=== PATIENT | female | born 1975 | race Caucasian/White ===

== ENCOUNTER 2025-02-04 15:12 | Emergency (ER) | payer MEDICARE, MEDICAID, SELFPAY ==
[2025-02-04 15:19] VITALS: BP 149/103; PULSE 64; TEMP 36.6; O2SAT 98; BMI 31.8
--- NOTE | 2025-02-04 15:25 | CT_ITS ---
The [address] [address] Patient Name: TALON SANCHEZ MRN: [id number] date: 1975 Sex: F Assigned Patient Location: ED.MAIN Current Patient Location: ED.MAIN Accession/Order Number: [id number] Exam Date: 02/04/2025 16:10 Report Date: 02/04/2025 16:47 At the request of: WALDEMAR ARREOLA DO Procedure: CT facial bones w con MAXILLOFACIAL CT WITH IV CONTRAST: CLINICAL HISTORY: left periorbital edema/tooth pain; soft tissue ifx COMPARISON: None TECHNIQUE: Spiral axial unenhanced images were obtained through the facial bones. Coronal and sagittal reconstructions were also reviewed. This CT exam was performed using one or more following dose reduction techniques: Automated exposure control, adjustment of the mA and/or kV according to patient size, or use of iterative reconstruction technique. FINDINGS: Mild left periorbital/cheek soft tissue swelling. No fluid collection to suggest abscess. No facial bone, nasal bone or orbital fracture. Moderate left maxillary sinus disease. No bony destruction is noted. Intraorbital contents appear grossly unremarkable. Nasopharynx appears grossly unremarkable. Mandible appears intact.. CT/CT facial bones w con IMPRESSION: MILD LEFT PERIORBITAL/CHEEK SOFT TISSUE SWELLING WITHOUT BONY ABNORMALITY OR FLUID COLLECTION TO SUGGEST ABSCESS. Impression dictated by: Honorio Thornton Jr., D.O. 02/04/2025 4:47 PM Dictation Location: [place] [address] Electronically authenticated by: [id number] Y Date: 02/04/2025 16:47
--- NOTE | 2025-02-04 15:32 | ED_ITS ---
HPI HPI - General Adult General Chief complaint: Dental/Oral Stated complaint: EYE Time Seen by Provider: 02/04/25 15:19 Source: patient Mode of arrival: walk-in Limitations: no limitations History of Present Illness HPI narrative: Patient is a 49-year-old female presenting to the emergency department for concerns of left-sided facial pain. She states that 4 days ago she started having pain in the left upper part of her mouth/gums. She states that the left part of her face, just under her eye has been swollen as well. Over the last 4 days, her symptoms have gotten worse and the swelling is progressing. Patient states she was seen in the emergency department at [facility] yesterday, and prescribed amoxicillin. She states that despite taking amoxicillin as prescribed, her symptoms/facial swelling is getting worse. She denies any changes in her vision, or pain with extraocular eye movements. She denies any throat pain, trouble breathing, shortness of breath, fevers, or chills. She has history of diabetes. No history of ENT procedures. Related Data Previous Rx's ?Medication ?Instructions ?Recorded amoxicillin 875 mg-potassium 1 tab PO Q12H 10 days #20 tabs 02/04/25 clavulanate 125 mg tablet Allergies Allergy/AdvReac Type Severity Reaction Status Date / Time No Known Drug Allergies Allergy Verified 02/04/25 15:19 Opioid HPI Opioid Management Most Recent Opioid Data: Last Pain Scale 9 Today, 15:39 Last MAR Pain Assessment Today, 15:39 Review of Systems ROS Status of ROS 10 or more systems reviewed and unremark able except as noted in history and below PFSH PFSH Social History Little interest or pleasure in doing things: not at all Feeling down, depressed, or hopeless: not at all Exam Narrative Exam Narrative: CONSTITUTIONAL: Well-appearing, answering questions and following commands a ppropriately SKIN: There is mild periorbital edema inferiorly and involving the left cheek. There is mild overlying erythema and tenderness to palpation. There is no fluctuance, crepitus, or drainage. EYES: PERRLA. EOMI. Sclera white. EARS, NOSE, THROAT: There is mild tenderness to palpation of the left upper gumline, just inferior to the area of facial swelling. No trismus. Uvula midline. No peritonsillar abscess. No neck swelling. Speaking with a normal voice. RESPIRATORY: Clear to auscultation bilaterally, no wheezes, crackles, or stridor, no use of accessory muscles CARDIOVASCULAR: Normal rate and regular rhythm. There is no S3, S4, murmur, rub. GASTROINTESTINAL: Abdomen is nondistended. MUSCULOSKELETAL: No peripheral edema. NEUROLOGIC: Patient is awake and alert. Constitutional Vital Signs, click to edit/add: Last Vital Signs Temp 97.9 F 02/04/25 15:19 Pulse 57 L 02/04/25 17:02 Resp 18 02/04/25 17:02 BP 141/103 H 02/04/25 17:02 Pulse Ox 99 02/04/25 17:02 O2 Del Method Room Air 02/04/25 17:02 Course Vital Signs Vital signs: Vital Signs Temperature 97.9 F 02/04/25 15:19 Pulse Rate 64 02/04/25 15:19 Respiratory Rate 14 02/04/25 15:19 Blood Pressure 149/103 H 02/04/25 15:19 Pulse Oximetry 98 02/04/25 15:19 Oxygen Delivery Method Room Air 02/04/25 15:19 Temperature 97.9 F 02/04/25 15:19 Pulse Rate 57 L 02/04/25 17:02 Respiratory Rate 18 02/04/25 17:02 Blood Pressure 141/103 H 02/04/25 17:02 Pulse Oximetry 99 02/04/25 17:02 Oxygen Delivery Method Room Air 02/04/25 17:02 Medical Decision Making [facility] Narrative Medical decision making narrative: Patient is a 49-year-old female presenting to the emergency department for evaluation of left-sided facial pain and swelling over the last 4 days. She has been on amoxicillin since discharge from an outside ED yesterday, however she feels as if her symptoms are progressing/getting worse. Her vital signs on arrival today are within normal limits. She is afebrile and hemodynamically stable. Her examinations as noted above. Differential diagnosis includes odontogenic infection, periorbital cellulitis, facial cellulitis/abscess, or other infectious processes. There is no ocular involvement, have low concern for postseptal cellulitis. CT maxillofacial with IV contrast was ordered to further investigate. IV was established and laboratory studies were obtained. She was given IV ketorolac for pain. CT maxillofacial independently reviewed and interpreted by myself and radiology demonstrated evidence of left-sided periorbital cellulitis without evidence of abscess formation. Laboratory studies were unremarkable. No significant electrolyte or metabolic derangement. No evidence of acute kidney injury. No anemia, leukocytosis, or thrombocytopenia. On reevaluation, patient states she feels improved. I do believe the patient is stable for discharge at this time. Patient's presentation is most likely consistent with mild periorbital, preseptal cellulitis. They were instructed to follow up with her PCP for further care in the next 5 to 7 days. Return precautions were given including any new or worsening symptoms. They were given a prescription for Augmentin 875 mg twice daily x 10 days. Patient understands and agrees to the plan. FINAL IMPRESSION: #Acute left-sided periorbital cellulitis DISPOSITION: Discharged home CONDITION: Fair Medical Records Medical records reviewed: Yes I reviewed the patient's medical records Lab Data Lab results reviewed: Yes I reviewed the patient's lab results Labs: Lab Results 02/04/25 Range/Units 15:40 WBC 10.7 (4.0-11.0) 10^3/uL RBC 4.97 (4.20-5.40) 10^6/uL Hgb 15.7 (12.0-16.0) g/dL Hct 45.2 (36.0-48.0) % MCV 90.9 (81.0-99.0) fL MCH 31.6 (26.7-34.0) pg MCHC 34.7 (29.9-35.2) g/dL RDW 12.9 (11.0-15.0) % Plt Count 250 (150-450) 10^3/uL MPV 12.0 (9.5-13.5) fL Neut % (Auto) 57.5 (43.0-75.0) % Lymph % (Auto) 27.9 (20.5-60.0) % [place] % (Auto) 6.7 (1.7-12.0) % Eos % (Auto) 6.8 (0.9-7.0) % Baso % (Auto) 0.7 (0.2-2.0) % Neut # (Auto) 6.1 (1.4-6.5) 10^3/uL Lymph # (Auto) 3.0 (1.2-3.8) 10^3/uL [place] # (Auto) 0.7 (0.3-0.8) 10^3/uL Eos # (Auto) 0.7 (0.0-0.7) 10^3/uL Baso # (Auto) 0.1 (0.0-0.1) 10^3/uL Abs Immat Gran (auto) 0.04 H (0.00-0.03) 10^3/uL Imm/Tot Granulo (auto) 0.4 (0.0-0.5) % Sodium 140 (136-145) mmol/L Potassium 3.3 L (3.5-5.1) mmol/L Chloride 104 (98-107) mmol/L Carbon Dioxide 26.3 (21.0-32.0) mmol/L Anion Gap 13.0 BUN 6.0 L (7.0-18.0) mg/dL Creatinine 0.85 (0.55-1.02) mg/dL Est GFR ( Amer) >60 (>=60 mL/min/1.73m^2) Est GFR (Non-Af Amer) >60 (>=60 mL/min/1.73m^2) BUN/Creatinine Ratio 7.1 Glucose 108 H (74-106) mg/dL Calcium 8.7 (8.5-10.1) mg/dL Imaging Data ct facial bones: Attestation: I personally reviewed and interpreted this imaging study as follows: Radiologist's impression: ITS Impressions Facial Bones CT 02/04/25 15:25 IMPRESSION: MILD LEFT PERIORBITAL/CHEEK SOFT TISSUE SWELLING WITHOUT BONY ABNORMALITY OR FLUID COLLECTION TO SUGGEST ABSCESS. Impression dictated by: Honorio Thornton Jr., D.O. 02/04/2025 4:47 PM Dictation Location: [place] [address] Electronically authenticated by: [id number] Y Date: 02/04/2025 16:47 Discharge Plan Discharge Chief Complaint: Dental/Oral Clinical Impression: Periorbital cellulitis of left eye Patient Disposition: Home, Self-Care Time of Disposition Decision: 16:53 Condition: Good Mode of Transportation: Private Vehicle Prescriptions / Home Meds: New amoxicillin-pot clavulanate 875-125 mg tablet 1 tab PO Q12H 10 Days Qty: 20 0RF Print Language: Brazilian Referrals: Physician,Non-Staff, MD [Primary Care Provider] - 1 week Discharge Date/Time: 02/04/25 17:02
[2025-02-04] MEDS: KETOROLAC TROMETHAMINE 30 MG/ML VIAL IVP (15:39)
[2025-02-04 15:50] LABS: Hematocrit 45.2 % (36.0-48.0); Hemoglobin 15.7 g/dL (12.0-16.0); Immature Granulocytes Abs Auto 0.04 10^3/uL (0.00-0.03); Immature Granulocytes Pct Auto 0.4 % (0.0-0.5); Lymphocytes Absolute Auto 3.0 10^3/uL (1.2-3.8); Mean Corpuscular HGB Conc 34.7 g/dL (29.9-35.2); Mean Corpuscular Hemoglobin 31.6 pg (26.7-34.0); Mean Corpuscular Volume 90.9 fL (81.0-99.0); Platelet Count 250 10^3/uL (150-450); Red Blood Count 4.97 10^6/uL (4.20-5.40); White Blood Count 10.7 10^3/uL (4.0-11.0)
[2025-02-04 15:58] LABS: Anion Gap 13.0; Blood Urea Nitrogen 6.0 mg/dL (7.0-18.0); Calcium 8.7 mg/dL (8.5-10.1); Carbon Dioxide 26.3 mmol/L (21.0-32.0); Chloride 104 mmol/L (98-107); Estimated GFR (African America >60 (>=60 mL/min/1.73m^2); Estimated GFR (Non-African Ame >60 (>=60 mL/min/1.73m^2); Glucose 108 mg/dL (74-106); Potassium 3.3 mmol/L (3.5-5.1); Sodium 140 mmol/L (136-145)
[2025-02-04 17:02] VITALS: BP 141/103; PULSE 57; O2SAT 99
== END 2025-02-04 17:02 | disposition home or self-care (01) ==
PROVIDERS: Emergency Provider Student in an Organized Health Care Education/Training Program; PCP Family Medicine
DX: L03.213 Periorbital cellulitis (principal); E11.9 Type 2 diabetes mellitus without complications
CPT/HCPCS: 36415; 70487; 80048; 85025; 96374; 99285; J1885; Q9967

== ENCOUNTER 2025-04-24 11:08 | Emergency (ER) | payer MEDICARE, MEDICAID, SELFPAY ==
--- OUTSIDE RECORDS SUMMARY | 2025-04-23 10:53 | XMS_ITS | Encounter Summary ---
Author Organization [facility] [facility] tem Address [id number] [address] [place] [address] Care Team Providers Care Fast Food Manager Name Role Phone Ori Flores MD Primary Care Provider + Reason for Visit * ReasonCommentsDental Pain Encounter Details DateTypeDepartmentCare Team (Latest Contact Info)Xrceukockbx65/24/2025 10:53 AM EST - 04/23/2025 11:15 AM ESTEmergency [facility] [address] [place] [address] Kasi Adame MD [address] [place] [address] Chronic dental pain (Primary Dx) Discharge Disposition: Home Social History Tobacco UseTypesPacks/DayYears UsedDateSmoking Tobacco: FormerSmokeless Tobacco: NeverAlcohol UseStandard Drinks/WeekCommentsNever0 (1 standard drink = 0.6 oz pure alcohol)AUDIT-CAnswerDate RecordedFrequency of Alcohol ConsumptionNever 05/26/2019Average Number of DrinksNot on file05/26/2019Frequency of Binge DrinkingNot on file05/26/2019ChildcareAnswerDate RecordedChildcareUnknown 11/09/2018EmploymentAnswerDate SknwdammUhvtrezwewGinvday06/12/2019Hunger ScreeningAnswerDate RecordedWithin the past 12 months we worried whether our food would run out before we got money to buy more.Never True04/23/2025Within the past 12 months the food we bought just didn't last and we didn't have money to get more.Never True04/23/2025Purpose - LifeAnswerDate RecordedPurpose and direction in rtirArpkdgw10/11/2021CommentsNoSex and Gender Information ValueDate RecordedSex Assigned at BirthNot on fileLegal KzkKpsfca86/06/2015 11:26 AM EDTGender IdentityNot on fileSexual OrientationNot on filedocumented as of this encounter Last Filed Vital Signs Vital SignReadingTime TakenCommentsBlood Aqbzxvxo814/3664904/23/2025 10:39 AM EST Wavjc566004/23/2025 10:39 AM OPNTypsormlruw96.8 ??C (98.2 ??F)04/23/2025 10:39 AM ESTRespiratory Jgld949106/23/2024 10:39 AM ESTOxygen Dlqkpjxgrj74%04/23/2025 10:39 AM ESTInhaled Oxygen Concentration--Whjply19.8 kg (187 lb)04/23/2025 10:39 AM DKURvmwwl307.2 cm (5' 7 )04/23/2025 10:39 AM ESTBody Mass Index29.29106/23/2024 10:39 AM ESTdocumented in this encounter Discharge Instructions * Attachments The following attachments cannot be sent through Care Everywhere. * Dental Pain ED (Welsh) documented in this encounter Medications at Time of Discharge MedicationSigDispense QuantityRefillsLast FilledStart DateEnd Date albuterol (ACCUNEB) 1.25 mg/3 mL nebulizer solution Inhale 1 ampule by nebulization every 6 (six) hours as needed for wheezing. albuterol (PROVENTIL HFA;VENTOLIN HFA) 90 mcg/actuation inhaler Indications:Community acquired pneumonia of left lower lobe of lungInhale 2 puffs every 6 (six) hours as needed for wheezing. 18 g 03/20/2024 amLODIPine (NORVASC) 10 mg tablet Take 10 mg by mouth daily. CEPHalexin (KEFLEX) 500 mg capsule Take 1 capsule (500 mg total) by mouth 3 (three) times a day for 7 days. 21 capsule ibuprofen (MOTRIN) 800 mg tablet Take 1 tablet (800 mg total) by mouth every 6 (six) hours as needed for pain. 30 tablet 02/03/2025 ketorolac (TORADOL) 10 mg tablet Take 1 tablet (10 mg total) by mouth 3 (three) times a day as needed for pain for up to 5 days. 15 tablet lisinopril-hydroCHLOROthiazide (PRINZIDE,ZESTORETIC) 20-25 mg per tablet Take 1 tablet by mouth daily. nystatin (MYCOSTATIN) powder Apply 1 Application topically in the morning and 1 Application at noon and 1 Application in the evening and 1 Application before bedtime. 15 g 01/03/2025documented as of this encounter ED Notes * Kasi Adame MD - 04/23/2025 10:56 AM EST Images from the original note were not included. [facility] Pt Name: Rain Wolfe Birthdate: 1975 Chief Complaint: Chief Complaint Patient presents with Dental Pain History of Present Illness: Initial evaluation performed at 10:[address] Isa Adame. Patient is a 50 y.o. female who presents to the ED for evaluation of dental pain. Pt states she wasgiven an antibiotic that she has since finished and has been seeing a dentist, which fixed her broken tooth and extracted two of them. Pt states her left lower jaw is just in a lot of pain now and she just was relief. Pt also states she did take her blood pressure medication this morning, but it iselevated due to her being in pain. History provided by: Patient director of institutional research used: No Past Medical History: Past Medical History: Diagnosis Date Asthma Hypertension Sciatica Past Surgical History: Past Surgical History: Procedure Laterality Date APPENDECTOMY SECTION CHOLECYSTECTOMY Family History: History reviewed. No pertinent family history. Social History: Social History Socioeconomic History Marital status: Legally Tobacco Use Smoking status: Former Smokeless tobacco: Never Vaping Use Vaping status: Former Substance and Sexual Activity Alcohol use: Never Drug use: Never Sexual activity: Defer Social Drivers of Health Financial Resource Strain: Low Risk (06/09/2021) [facility] Overall Financial Resource Strain (CARDIA) Difficulty of Paying Living Expenses: Not hard at all Food Insecurity: No Food Insecurity (04/23/2025) Hunger Screening Food Insecurity - Worry: Never True Food Insecurity - Inability: Never True Transportation Needs: No Transportation Needs (03/15/2025) Received from [facility] PRAPARE - Transportation In the past 12 months, has lack of transportation kept you from medical appointments or from getting medications?: No In the past 12 months, has lack of transportation kept you from meetings, work, or from getting things needed for daily living?: No Housing Instability: Low Risk (03/15/2025) Received from [facility] Housing Stability Vital Sign In the last 12 months, was there a time when you were not able to pay the mortgage or rent on time?: No In the past 12 months, how many times have you moved where you were living?: 1 At any time in the past 12 months, were you homeless or living in a long-term (including now)?: No Review of Systems: Review of Systems Physical Exam: ED Triage Vitals [04/23/25 1039] Temp Heart Rate Resp BP SpO2 36.8 ??C (98.2 ??F) 77 18 (!) 155/108 97 % Temp Source Heart Rate Source Patient Position BP Location FiO2 (%) Oral Pulse Ox Sitting Left arm -- Vitals: 04/23/25 1039 BP: (!) 155/108 Temp: 36.8 ??C (98.2 ??F) TempSrc: Oral Pulse: 77 Resp: 18 SpO2: 97% Height: 170.2 cm (5' 7 ) Weight: 84.8 kg (187 lb) Physical Exam Vitals reviewed. HENT: Head: Normocephalic and atraumatic. Comments: No facial erythema. Mouth/Throat: Mouth: Mucous membranes are moist. Dentition: Dental caries present. No gingival swelling (or bleeding/drainage). Comments: Left lower 1st and 2nd molars are gone from prior extraction. Eyes: Conjunctiva/sclera: Conjunctivae normal. Cardiovascular: Rate and Rhythm: Normal rate. Pulmonary: Effort: Pulmonary effort is normal. Breath sounds: Normal breath sounds. Abdominal: General: There is no distension. Palpations: Abdomen is soft. Musculoskeletal: General: Normal range of motion. Cervical back: Normal range of motion and neck supple. Skin: General: Skin is warm and dry. Neurological: General: No focal deficit present. Mental Status: She is alert and oriented to person, place, and time. GCS: GCS eye subscore is 4. GCS verbal subscore is 5. GCS motor subscore is 6. Procedure: Procedures Re-evaluation: Re-Evaluation Medical Decision Making ED Course: Clinical Impressions as of 04/23/25 1102 Chronic dental pain . ED Disposition ED Disposition Discharge Date/Time WedApr 23, 2025 10:59 AM Comment At the time of discharge, the plan has been discussed with the patient regarding the diagnosis and prognosis. All questions have been answered. Verbal discharge instructions were discussed with the patient. The patient has been advised to follow up w ith their Specialist within 1 week. The patient was also instructed to return to the ED if their symptoms change, worsen, new symptoms arise or if they have any additional concerns. Medications Prescribed this Visit Sig CEPHalexin (KEFLEX) 500 mg capsule Take 1 capsule (500 mg total) by mouth 3 (three) times a day for7 days. ketorolac (TORADOL) 10 mg tablet Take 1 tablet (10 mg total) by mouth 3 (three) times a day as needed for pain for up to 5 days. . Please note that portions of this note were completed with a voice recognition program. Efforts were made to edit the dictations but occasionally words are mis-transcribed. Bernardino Hull 04/23/25 1102 Kasi Adame MD 04/24/25 0839 * Renetta Luna RN - 04/23/2025 10:40 AM EST RECURRENT DENTAL PAIN LOWER LEFT. PT STATES TOOTH WAS BROKEN HAS BEEN FIXED. documented in this encounter Plan of Treatment Not on file documented as of this encounter Visit Diagnoses Diagnosis Chronic dental pain- Primary documented in this encounter Administered Medications Medication OrderMAR ActionAction DateDoseRateSite CEPHalexin (KEFLEX) capsule 500 mg 500 mg, oral, Once, On Wed04/23/25 at 1059, For 1 dose, Look-alike/sound-alike medication - verifyindication for use., Indication: Skin and soft tissue infection Given04/23/2025 11:05 AM AKP280 mg ketorolac (TORADOL) tablet 10 mg 10 mg, oral, Once, On Wed04/23/25 at 1059, For 1 dose, Look-alike/sound-alike medication - verify indication for use. Duration of therapy is not to exceed 5 days. Maximum recommended dose = 40mg/24 hours. Given04/23/2025 11:05 AM EST10 mgdocumented in this encounter Active and Recently Administered Medications Times are shown in EST.Medication Order// CEPHalexin (KEFLEX) capsule 500 mg (COMPLETED) 500 mg, oral, Once, On Wed04/23/25 at 1059, For 1 dose, Look-alike/sound-alike medication - verifyindication for use., Indication: Skin and soft tissue infection * 1105 (Given - Provider: Doron Degroot RN) ketorolac (TORADOL) tablet 10 mg (COMPLETED) 10 mg, oral, Once, On Wed04/23/25 at 1059, For 1 dose, Look-alike/sound-alike medication - verify indication for use. Duration of therapy is not to exceed 5 days. Maximum recommended dose = 40mg/24 hours. * 1105 (Given - Provider: Doron Degroot RN) documented in this encounter Care Teams Team MemberRelationshipSpecialtyStart DateEnd Date Ori Flores MD [address] [place] [id number] PCP - GeneralFamily Medicine09/17/24documented as of this encounter
[2025-04-24 11:11] VITALS: BP 154/106; PULSE 94; TEMP 37.2; O2SAT 96; BMI 30.2
--- NOTE | 2025-04-24 11:20 | ED.GENADUL1 ---
HPI HPI - General Adult General Chief complaint: Dental/Oral Stated complaint: DENTAL PAIN SWELLING Time Seen by Provider: 04/24/25 11:09 Source: patient Mode of arrival: walk-in Limitations: no limitations History of Present Illness HPI narrative: 50-year-old female presented to the emergency department for toothache. She is complaining of pain to the left lower jaw and has some swelling. She went to the hospital in [place] yesterday and they put her on Keflex. She talk to her dentist and they told her to come here to get a shot. She has an appointment to have a root canal in a few weeks. The pain is moderate and continuous. Related Data Previous Rx's ?Medication ?Instructions ?Recorded amoxicillin 875 mg-potassium 1 tab PO Q12H 10 days #20 tabs 02/04/25 clavulanate 125 mg tablet amoxicillin 875 mg-potassium 1 tab PO BID #20 tabs 04/24/25 clavulanate 125 mg tablet Allergies Allergy/AdvReac Type Severity Reaction Status Date / Time No Known Drug Allergies Allergy Verified 04/24/25 11:15 Opioid HPI Opioid Management Most Recent Opioid Data: Last Pain Scale 10 Today, 11:11 Review of Systems ROS Narrative A ten point review of systems is negative except as noted above. PFSH PFSH Social History Little interest or pleasure in doing things: not at all Feeling down, depressed, or hopeless: not at all Exam Narrative Exam Narrative: Nurses note and vital signs reviewed General:The patient appears in no apparent distress. Skin:Warm, dry, no pallor noted.There is no rash noted. Head:Normocephalic, atraumatic Eye: Normal conjunctiva, no drainage, no periorbital swelling Ears, Nose, Mouth, and Throat: oral mucosa is moist. Nares patent. No swelling to the floor of her mouth. She has swelling of the left lower jaw without fluctuance. No bleeding or pus present in her mouth. Cardiovascular:Regular Rate and Rhythm Respiratory:Patient is in no distress, no accessory muscle use, lungs are clear to auscultation, no wheezing, rales or rhonchi Back:non-tender GI: Soft and nontender Musculoskeletal: The patient has no evidence of calf tenderness, no pitting edema, symmetrical pulses noted bilaterally Neurological: Awake and alert Psychiatric:Cooperative Constitutional Vital Signs, click to edit/add: Last Vital Signs Temp 98.9 F 04/24/25 11:11 Pulse 94 H 04/24/25 11:11 Resp 18 04/24/25 11:11 BP 154/106 H 04/24/25 11:11 Pulse Ox 96 04/24/25 11:11 Course Vital Signs Vital signs: Vital Signs Temperature 98.9 F 04/24/25 11:11 Pulse Rate 94 H 04/24/25 11:11 Respiratory Rate 18 04/24/25 11:11 Blood Pressure 154/106 H 04/24/25 11:11 Pulse Oximetry 96 04/24/25 11:11 Temperature 98.9 F 04/24/25 11:11 Pulse Rate 94 H 04/24/25 11:11 Respiratory Rate 18 04/24/25 11:11 Blood Pressure 154/106 H 04/24/25 11:11 Pulse Oximetry 96 04/24/25 11:11 Medical Decision Making MDM Narrative Medical decision making narrative: She was given IM Ancef and is requesting Augmentin because this helped her the last time. She was prescribed Augmentin and will follow-up with her dentist. Treatment diagnosis and follow-up were discussed thoroughly. Differential Diagnosis Differential Diagnosis: Dental caries, dental abscess, dental infection Medical Records Medical records reviewed: Yes I reviewed the patient's medical records Discharge Plan Discharge Chief Complaint: Dental/Oral Clinical Impression: Toothache Patient Disposition: Home, Self-Care Time of Disposition Decision: 11:20 Condition: Good Mode of Transportation: Private Vehicle Prescriptions / Home Meds: New amoxicillin-pot clavulanate 875-125 mg tablet 1 tab PO BID Qty: 20 0RF No Action amoxicillin-pot clavulanate 875-125 mg tablet 1 tab PO Q12H 10 Days Qty: 20 0RF Print Language: Bolivian Instructions: Toothache (ED) Additional Instructions: Follow-up with your dentist. Referrals: PATRICIA ADAMS [Primary Care Provider, Unknown] - 1 week
--- OUTSIDE RECORDS SUMMARY | 2025-04-24 11:28 | XMS_ITS | Encounter Summary ---
Author Organization [facility] Address [address], [address] [place] [address] Care Team Providers Care Animal Technician Name Role Phone Ori Flores MD Primary Care Provider + Reason for Visit * ReasonOnset DateCommentsMedication Qdfpoy3304/20/2025 Encounter Details DateTypeDepartmentCare Team (Latest Contact Info)Pclhlinrkwv22/21/2025Refill [facility] [address] [place] [address] Estelle Mcmahon, GROUP HOME SUPERVISOR - CHIEF TALENT OFFICER [address] [place] [address] Medication Refill Social History Tobacco UseTypesPacks/DayYears UsedDateSmoking Tobacco: FormerCigarettesQuit: 08/14/2012Smokeless Tobacco: NeverAlcohol UseStandard Drinks/WeekCommentsYes0 (1 standard drink = 0.6 oz pure alcohol)Overall Financial Resource Strain (CARDIA) AnswerDate RecordedHow hard is it for you to pay for the very basics like food, housing, medical care, and heating?Not hard at all06/09/2021HQ-2AnswerDate RecordedPHQ-9 Total Ewshq183Housing Stability Vital SignAnswerDate RecordedIn the last 12 months, was there a time when you were not able to pay the mortgage or rent on time?No03/15/2025In the past 12 months, how many times have you moved where you were living?110/16/2025At any time in the past 12 months, were you homeless or living in a correction (including now)?No03/15/2025 Hunger Vital SignAnswerDate RecordedWithin the past 12 months, you worried that your food would run out before you got the money to buymore.Never true03/15/2025 Within the past 12 months, the food you bought just didn't last and you didn't have money to get more.Never true03/15/2025PRAPARE - TransportationAnswerDate RecordedIn the past 12 months, has lack of transportation kept you from medical appointments or from getting medications?No03/15/2025In the past 12 months, has lack of transportation kept you from meetings, work, or from getting things needed for daily living?No03/15/2025HC UtilitiesAnswerDate RecordedIn the past 12 months has the electric, gas, oil, or water company threatened to shut off services in your home?No03/15/2025CommentsNoSex and Gender Information ValueDate RecordedSex Assigned at BirthNot on fileLegal XjbCvwmhl68/10/2013 11:35 AM ESTGender IdentityNot on fileSexual OrientationNot on filedocumented as of this encounter Plan of Treatment Not on file documented as of this encounter Visit Diagnoses Diagnosis Primary hypertension Unspecified essential hypertension documented in this encounter Additional Health Concerns AssessmentNoted TimeA fall risk assessment has been completed for the patient 06/09/2021 1:10 PM ESTdocumented as of this encounter Care Teams Team MemberRelationshipSpecialtyStart DateEnd Date Ori Flores MD [address] [place] [address] PCP - GeneralFamily Medicine12/28/18documented as of this encounter
--- OUTSIDE RECORDS SUMMARY | 2025-04-24 11:28 | XMS_ITS | Encounter Summary ---
Author Organization [employer] Address [facility]-[id number] [address] [place] [address] Care Team Providers Care Military Science Teacher Name Role Phone Ori Flores MD Primary Care Provider + Encounter Details DateTypeDepartmentCare Team (Latest Contact Info)Zrbutfsjumf73/24/2025Travel Social History Tobacco UseTypesPacks/DayYears UsedDateSmoking Tobacco: FormerSmokeless Tobacco: NeverAlcohol UseStandard Drinks/WeekCommentsNever0 (1 standard drink = 0.6 oz pure alcohol)AUDIT-CAnswerDate RecordedFrequency of Alcohol ConsumptionNever 05/26/2019Average Number of DrinksNot on file05/26/2019Frequency of Binge DrinkingNot on file05/26/2019ChildcareAnswerDate RecordedChildcareUnknown 11/09/2018EmploymentAnswerDate DmvuanaqEhhrlrhbooHguhhju83/12/2019Hunger ScreeningAnswerDate RecordedWithin the past 12 months we worried whether our food would run out before we got money to buy more.Never True04/23/2025Within the past 12 months the food we bought just didn't last and we didn't have money to get more.Never True04/23/2025Purpose - LifeAnswerDate RecordedPurpose and direction in pskjLooqfcl75/11/2021CommentsNoSex and Gender Information ValueDate RecordedSex Assigned at BirthNot on fileLegal ChwZapijs85/06/2015 11:26 AM EDTGender IdentityNot on fileSexual OrientationNot on filedocumented as of this encounter Plan of Treatment Not on file documented as of this encounter Visit Diagnoses Not on filedocumented in this encounter Care Teams Team MemberRelationshipSpecialtyStart DateEnd Date Oir Flores MD [address] [place] [address] PCP - GeneralFamily Medicine09/17/24documented as of this encounter
--- OUTSIDE RECORDS SUMMARY | 2025-04-24 11:28 | XMS_ITS | Clinical Summary ---
Author Organization [facility] Address [address], [address] [place] [address] Care Team Providers Care Bread Distributor Name Role Phone Ori Flores MD Primary Care Provider + Allergies No known active allergies Medications MedicationSigDispense QuantityRefillsLast FilledStart DateEnd DateStatus DULoxetine (CYMBALTA) 60 MG extended release capsule Take 1 capsule by mouth daily 30 capsule Active Additional Information Patient not taking.Reported on 04/05/2024 budesonide-formoterol (SYMBICORT) 160-4.5 MCG/ACT AERO Inhale 2 puffs into the lungs 2 times daily 1 each 03/02/2022ctive Additional Information Patient not taking.Reported on 04/05/2024 QUEtiapine (SEROQUEL) 25 MG tablet Take 1 tablet by mouth nightly as needed for Other (sleep) 60 tablet 4Active Additional Information Patient not taking.Reported on 02/15/2025 valACYclovir (VALTREX) 1 g tablet take 1 tablet by mouth twice a day 7 tablet 5Active amoxicillin-clavulanate (AUGMENTIN) 875-125 MG per tablet Take 1 tablet by mouth 2 times dailyActive amLODIPine (NORVASC) 5 MG tablet Indications:Essential hypertensiontake 1 tablet by mouth once daily 90 tablet 5Active albuterol sulfate HFA (PROVENTIL;VENTOLIN;PROAIR) 108 (90 Base) MCG/ACT inhaler Indications:COPD with acute exacerbation (HCC)INHALE 2 PUFFS BY MOUTH AND INTO THE LUNGS EVERY 6 HOURS NEEDED FOR WHEEZING 18 g 5Active ipratropium 0.5 mg-albuterol 2.5 mg (DUONEB) 0.5-2.5 (3) MG/3ML SOLN nebulizer solution Indications:COPD with acute exacerbation (HCC)inhale contents of 1 vial ( 3 milliliters ) in nebulizer by mouth and INTO THE LUNGS every 6 hours if needed for shortness of breath 360 mL 5Active Spacer/Aero-Holding Chambers (VORTEX VALVED HOLDING CHAMBER) IRIS Indications:COPD with acute exacerbation (HCC)1 each by Does not apply route daily 1 each 6Active methylPREDNISolone (MEDROL DOSEPACK) 4 MG tablet Indications:COPD with acute exacerbation (HCC)Take by mouth per directions 1 kit 5Active losartan (COZAAR) 25 MG tablet Indications:Primary hypertensionTake 1 tablet by mouth daily 30 tablet 5Active losartan (COZAAR) 25 MG tablet Indications:Primary hypertensionTake 1 tablet by mouth daily 30 tablet Discontinued(REORDER) guaiFENesin (MUCINEX) 600 MG extended release tablet Indications:COPD with acute exacerbation (HCC)Take 2 tablets by mouth 2 times daily for 10 days 40 tablet /Expired azithromycin (ZITHROMAX) 250 MG tablet Indications:COPD with acute exacerbation (HCC)500mg on day 1 followed by 250mg on days 2 - 5 6 tablet /Expired Active Problems ProblemNoted DateDiagnosed DateTrichomoniasis of pvqbhs785Constipation 5Bilateral gpimrxoqbutp17/10/2022hronic obstructive pulmonary disease, unspecified COPD type06/09/2021andidiasis of bwokgj9002/10/2021Finding of above normal blood yediieky54/13/2021ecurrent genital herpes dgxhdsw1602/10/2021prain of foot02/10/20216321Sgjbhwrnlmx47/12/5203Fwhqmts84/18/2017Chronic low back pain 03/21/20163608Jwxnyrj65/22/0529Ficfopw09/05/6910Wbandpu49/03/2015Moderate persistent asthma without sofuzddhuhpr66/23/2015Herpes sxbtqlw2412/07/2014 Resolved Problems ProblemNoted DateDiagnosed DateResolved TizdDzuns08Sore throat Encounters DateTypeDepartmentCare GmvmBmxztetsykg87/21/2025Refill [address] [place] [address] Estelle Mcmahon, LIBRARY TECHNICIAN - MARKETING SALES CONSULTANT Medication Unvuie9704/03/2025Results Follow-Up [address] [place] [address] Estelle Mcmahon, LIBRARY TECHNICIAN - MARKETING SALES CONSULTANT 04/02/2025Orders Only [address] [place] [address] Ori Flores MD Screening for colorectal tfttin8703/19/2025Orders Only [address] [place] [address] Estelle Mcmahon, LIBRARY TECHNICIAN - MARKETING SALES CONSULTANT COPD with acute exacerbation (HCC)03/15/2025 1:00 PM EDTOffice Visit [address] [place] [address] Estelle Mcmahon, LIBRARY TECHNICIAN - MARKETING SALES CONSULTANT COPD with acute exacerbation (HCC) (Primary Dx); Essential hypertension; Anxiety; Chronic left-sided low back pain, unspecified whether sciatica punsayv7103/08/2025 Refill [facility] [address] [facility] [place] [address] Estelle Mcmahon, LIBRARY TECHNICIAN - MARKETING SALES CONSULTANT Medication Mizcoj4902/15/2025 10:00 AM EDTOffice Visit [address] [place] [address] Estelle Mcmahon, LIBRARY TECHNICIAN - MARKETING SALES CONSULTANT Primary hypertension (Primary Dx); Chronic obstructive pulmonary disease, unspecified COPD type (HCC); Moderate persistent asthma without complication; Anxiety; Essential hypertension; Trichomoniasis of vagina; Recurrent genital herpes simplex; Constipation, unspecified constipation type01/22/2025[facility] [address] [facility] [place] [address] Ori Flores MD Medication Refillfrom Last 3 Months Immunizations ImmunizationAdministration DatesNext DueHep B, ENGERIX-B, RECOMBIVAX-HB, (age - 19y), IM, 0.5mL03/19/2015Pneumococcal, PPSV23, PNEUMOVAX 23, (age 2y+), SC/IM, 0.5mL10/01/2016TDaP, ADACEL (age 10y-64y), BOOSTRIX (age 10y+), IM, 0.5mL 01/15/2017 Family History Medical HistoryRelationNameCommentsHigh Blood PressureMotherRelationNameStatus CommentsFatherAliveMotherAlive Social History Tobacco UseTypesPacks/DayYears UsedDateSmoking Tobacco: FormerCigarettesQuit: 08/14/2012Smokeless Tobacco: Never Tobacco Cessation:Counseling Given: Not Answered Alcohol UseStandard Drinks/WeekCommentsYes0 (1 standard drink = 0.6 oz pure alcohol)Overall Financial Resource Strain (CARDIA)AnswerDate RecordedHow hard is it for you to pay for the very basics like food, housing, medical care, and heating?Not hard at all06/09/2021HQ-2AnswerDate RecordedPHQ-9 Total Score0 03/15/2025Housing Stability Vital SignAnswerDate RecordedIn the last 12 months, was there a time when you were not able to pay the mortgage or rent on time?No 03/15/2025In the past 12 months, how many times have you moved where you were living?t any time in the past 12 months, were you homeless or living in a jail (including now)?No03/15/2025Hunger Vital SignAnswerDate Recorded Within the past 12 months, you worried that your food would run out before you got the money to buymore.Never true03/15/2025Within the past 12 months, the food you bought just didn't last and you didn't have money to get more.Never true 03/15/2025PRAPARE - TransportationAnswerDate RecordedIn the past 12 months, has lack of transportation kept you from medical appointments or from getting medications?No03/15/2025In the past 12 months, has lack of transportation kept you from meetings, work, or from getting things needed for daily living?No 03/15/2025HC UtilitiesAnswerDate RecordedIn the past 12 months has the [place], gas, oil, or water company threatened to shut off services in your home?No03/15/2025CommentsNoSex and Gender InformationValueDate Recorded Sex Assigned at BirthNot on fileLegal KtgZnmegn78/10/2013 11:35 AM ESTGender IdentityNot on fileSexual OrientationNot on file Last Filed Vital Signs Vital SignReadingTime TakenCommentsBlood Pbstxymo287/9603/15/2025 1:13 PM EDT Gnbzk416703/15/2025 1:13 PM OVDFkqpkgaokpt74.6 ??C (97.8 ??F)03/15/2025 1:13 PM EDTRespiratory Jevz0015 1:13 PM EDTOxygen Lgestwdhur89%03/15/2025 1:13 PM EDTInhaled Oxygen Concentration--Jsvwep61.9 kg (207 lb)03/15/2025 1:13 PM EDT Dxrraz547.6 cm (5' 6 )03/15/2025 1:13 PM EDTBody Mass Index33.411 1:13 PM EDT Plan of Treatment Health MaintenanceDue DateLast DoneCommentsHepatitis B vaccine (1 of 3 - 19+ 3- dose series)Pap smear1997Cervical cancer screen 2006HPV (without or with Pap)2006Breast cancer sizfen0103/01/2016 Pneumococcal 0-49 years Vaccine (2 of 2 - PCV)Colonoscopy 2021olorectal Cancer Ywcnaw1403/01/2021FIT/FOBT: Average risk2021 Fecal-DNA (Cologuard): Average risk2021igmoidoscopy/CT colonography 2021nnual Wellness Visit (Medicare Advantage)05/31/2024Flu vaccine (#1) 12/29/2024OVID-19 Vaccine (1 - season)2025Depression Screen , 03/15/2025DTaP/Tdap/Td vaccine (2 - Td or Tdap)01/15/2027 01/15/20170948Xeyscb79, 08/25/2018, 08/02/2017Diabetes screen Shhpncvfjyrp32/28/2019Depression JpxjasweznMmanmffhsvdt02/16/2025, 03/15/2025HIV screenDiscontinuedHepatitis A vaccineAged OutNo longer eligible based on patient's age to complete this topicHepatitis C screenDiscontinuedHib vaccine Aged OutNo longer eligible based on patient's age to complete this topic Meningococcal (ACWY) vaccineAged OutNo longer eligible based on patient's age to complete this topicMeningococcal B vaccineAged OutNo longer eligible based on patient's age to complete this topicPolio vaccineAged OutNo longer eligible based on patient's age to complete this topic Procedures Procedure NamePriorityDate/TimeAssociated DiagnosisCommentsXR CHEST (2 VW) Qvquida4203/15/2025 COPD with acute exacerbation (HCC) LIPID URDRNNarqyzt10/06/2024 Primary hypertension COMPREHENSIVE METABOLIC PANEL, OHIYIRGCzjtyqf97/28/2019 1:50 PM EDT from Last 3 Months or Most Recently Relevant to Health Maintenance Results * XR CHEST STANDARD (2 VW) (03/15/2025)Anatomical RegionLateralityModalityChest Radiographic ImagingSpecimen (Source)Anatomical Location / Laterality Collection Method / VolumeCollection TimeReceived TimeChest Narrative Authorizing ProviderResult TypeResult StatusEstelle Mcmahon LIBRARY TECHNICIAN - MARKETING SALES CONSULTANT IMG DIAGNOSTIC IMAGING ORDERABLESFinal Result * Lipid Panel (04/05/2024)ComponentValueRef RangeTest MethodAnalysis Time Performed AtPathologist SignatureCholesterol, Fnfpb425ca/uNBGK9240 - 70 mg/dL LDL Fhrtunqkdwt613Ewpdmkrrwfhhz721mn/dLChol/HDL Ratio4.5VLDLCholesterol non NWP529Hxwdgywy (Source)Anatomical Location / LateralityCollection Method / VolumeCollection TimeReceived TimeBloodBLOOD SPECIMEN / Krviszy7204/05/2024 Narrative Authorizing ProviderResult TypeResult StatusBernardodewey Ken Sandra MDCHEMISTRY ORDERABLESFinal Result * (ABNORMAL) Comprehensive Metabolic Panel, Fasting (08/25/2018 1:50 PM EDT) ComponentValueRef RangeTest MethodAnalysis TimePerformed AtPathologist SignatureGlucose, Jumwxyz5231 - 99 mg/dL08/25/2018 1:50 PM EDTMERCY EVMWNBHZQCEXHFF42 - 20 mg/dL08/25/2018 1:50 PM EDTMERCY LABORATORIESCreatinine 0.510.50 - 0.90 mg/dL08/25/2018 1:50 PM EDTMERCY LABORATORIESBUN/Creatinine RatioNOT REPORTED9 - 1:50 PM EDTMERCY LABORATORIESCalcium9.28.6 - 10.4 mg/dL08/25/2018 1:50 PM EDTMERCY GIWRZCCIWKCIBfipmf884579 - 144 mmol/L 08/25/2018 1:50 PM EDTMERCY LABORATORIESPotassium3.73.7 - 5.3 mmol/L08/25/2018 1:50 PM EDTMERCY SVFZQECVGMKFPoajrtsb31905 - 107 mmol/L08/25/2018 1:50 PM EDT [facility] EOQSFUQVJMFJNP03788 - 31 mmol/L08/25/2018 1:50 PM EDTMERCY LABORATORIES Anion Beg887 - 17 mmol/L08/25/2018 1:50 PM EDTMERCY LABORATORIESAlkaline Igfdzukygsn2776 - 104 U/L08/25/2018 1:50 PM EDTMERCY NYMCQEUMUTMRLON822 - 33 U/L08/25/2018 1:50 PM EDTMERCY UDTHDCZGHVZXTMW99<32 U/L08/25/2018 1:50 PM EDT [facility] LABORATORIESTotal Bilirubin0.27(L)0.3 - 1.2 mg/dL08/25/2018 1:50 PM EDT [facility] LABORATORIESTotal Protein6.56.4 - 8.3 g/dL08/25/2018 1:50 PM EDTMERCY LABORATORIESAlbumin4.43.5 - 5.2 g/dL08/25/2018 1:50 PM EDTMERCY LABORATORIES Albumin/Globulin Ratio2.11.0 - 2. 1:50 PM EDTMERCY LABORATORIESGFR Non->60>60 mL/min08/25/2018 1:50 PM EDTMERCY LABORATORIESGFR >60>60 mL/min08/25/2018 1:50 PM EDTMERCY LABORATORIESGFR Kupprhb7308/25/2018 1:50 PM EDTMERCY LABORATORIESComment: Average GFR for 40-49 years old: 99 mL/min/1.73sq m Chronic Kidney Disease: <60 mL/min/1.73sq m Kidney failure: <15 mL/min/1.73sq m ? eGFR calculated using average adult body mass. Additional eGFR calculator available at: ? http://www.[employer]/THE Football App_crcl_2012.htm ? GFR StagingNOT LVYFCUDU57/28/2019 1:50 PM EDTMERCY LABORATORIESSpecimen (Source) Anatomical Location / LateralityCollection Method / VolumeCollection Time Received Time08/25/2018 1:50 PM EDT08/25/2018 11:55 PM EDT Narrative Authorizing ProviderResult TypeResult StatusShivaprasad Vincent Nash MDCHEMISTRY ORDERABLESEdited Result - FinalPerforming OrganizationAddressCity/State/ZIP Code Phone Number [employer] [address] [id number], [facility] [phone] from Last 3 Months or Most Recently Relevant to Health Maintenance Insurance * Guarantor: Rain Wolfe TypeRelation to PatientDate of BirthPhone Billing AddressPersonal/HkvjocTkie[address] [place] [phone] Care Teams Team MemberRelationshipSpecialtyStart DateEnd Date Oir Flores MD [address] [place] [address] PCP - GeneralFamily Medicine12/28/18
--- OUTSIDE RECORDS SUMMARY | 2025-04-24 11:28 | XMS_ITS | Clinical Summary ---
Author Organization [employer] Address [id number] [address] [place] [address] Care Team Providers Care Pit Laborer Name Role Phone Ori Floers MD Primary Care Provider + Allergies No known active allergies Medications MedicationSigDispense QuantityRefillsLast FilledStart DateEnd DateStatus albuterol (ACCUNEB) 1.25 mg/3 mL nebulizer solution Inhale 1 ampule by nebulization every 6 (six) hours as needed for wheezing. Active lisinopril-hydroCHLOROthiazide (PRINZIDE,ZESTORETIC) 20-25 mg per tablet Take 1 tablet by mouth daily.Active amLODIPine (NORVASC) 10 mg tablet Take 10 mg by mouth daily.Active albuterol (PROVENTIL HFA;VENTOLIN HFA) 90 mcg/actuation inhaler Indications:Community acquired pneumonia of left lower lobe of lungInhale 2 puffs every 6 (six) hours as needed for wheezing. 18 g 4Active nystatin (MYCOSTATIN) powder Apply 1 Application topically in the morning and 1 Application at noon and 1 Application in the evening and 1 Application before bedtime. 15 g 5Active ibuprofen (MOTRIN) 800 mg tablet Take 1 tablet (800 mg total) by mouth every 6 (six) hours as needed for pain. 30 tablet 5Active CEPHalexin (KEFLEX) 500 mg capsule Take 1 capsule (500 mg total) by mouth 3 (three) times a day for 7 days. 21 capsule 5Active ketorolac (TORADOL) 10 mg tablet Take 1 tablet (10 mg total) by mouth 3 (three) times a day as needed for pain for up to 5 days. 15 tablet 515Active traZODone (DESYREL) 100 mg tablet Take 100 mg by mouth nightly.04/23/2025Discontinued Active Problems No known active problems Encounters DateTypeDepartmentCare NshbHxfuotfvjue42/24/2025 10:53 AM EST - 04/23/2025 11:15 AM [facility]Emer[facility] [address] [place] [address] Kasi Adame MD Chronic dental pain (Primary Dx) Discharge Disposition: Home04/23/20252358Hpaswy86/16/2025 2:10 PM EDT - 03/15/2025 11:59 PM EDTHospital Encounter [facility] [address] [place] [address] COPD with acute exacerbation ([facility]) Discharge Disposition: Home03/15/20259150Poltpq85/06/2025 5:35 PM EDT - 02/03/2025 6:33 PM EDTEmerWexner [facility] Center - [facility] [address] [place] [id number] Pain, dental (Primary Dx); Facial swelling Discharge Disposition: Home02/03/2025Travelfrom Last 3 Months Social History Tobacco UseTypesPacks/DayYears UsedDateSmoking Tobacco: FormerSmokeless Tobacco: NeverAlcohol UseStandard Drinks/WeekCommentsNever0 (1 standard drink = 0.6 oz pure alcohol)AUDIT-CAnswerDate RecordedFrequency of Alcohol ConsumptionNever 05/26/2019Average Number of DrinksNot on file05/26/2019Frequency of Binge DrinkingNot on file05/26/2019ChildcareAnswerDate RecordedChildcareUnknown 11/09/2018EmploymentAnswerDate VtbxzevyQnvkqszixtWvgqolg78/12/2019Hunger ScreeningAnswerDate RecordedWithin the past 12 months we worried whether our food would run out before we got money to buy more.Never True04/23/2025Within the past 12 months the food we bought just didn't last and we didn't have money to get more.Never True04/23/2025Purpose - LifeAnswerDate RecordedPurpose and direction in vtggOtqmels52/11/2021CommentsNoSex and Gender Information ValueDate RecordedSex Assigned at BirthNot on fileLegal QpgJiofma69/06/2015 11:26 AM EDTGender IdentityNot on fileSexual OrientationNot on file Last Filed Vital Signs Vital SignReadingTime TakenCommentsBlood Nqbrzpgo310/5080204/23/2025 10:39 AM EST Onqst029904/23/2025 10:39 AM YVBCcxyhyqdavf09.8 ??C (98.2 ??F)04/23/2025 10:39 AM ESTRespiratory Pgzm422606/23/2024 10:39 AM ESTOxygen Edszowgmhs25%04/23/2025 10:39 AM ESTInhaled Oxygen Concentration--Cegjfc26.8 kg (187 lb)04/23/2025 10:39 AM GHOYftzhj795.2 cm (5' 7 )04/23/2025 10:39 AM ESTBody Mass Index29.29106/23/2024 10:39 AM EST Plan of Treatment Health MaintenanceDue DateLast DoneCommentsDepression Sjgrwvyew77/02/1988Adult BMI Follow Up Plan1994Pap Smear1997Influenza Vyfjqbl6001/29/2025dult BMI Ljhwgerqb69Tobacco Fvklwtcdf02DTaP,Tdap and Td Vaccines (2 - Td or Tdap) Medical Devices Not on file Procedures Procedure NamePriorityDate/TimeAssociated DiagnosisCommentsXR CHEST 2 VWSRoutine 03/15/2025 2:19 PM EDT COPD with acute exacerbation ([facility]) from Last 3 Months Results * X-ray chest 2 views (03/15/2025 2:19 PM EDT)Anatomical RegionLaterality ModalityBody, ChestN/AComputed RadiographySpecimen (Source)Anatomical Location / LateralityCollection Method / VolumeCollection TimeReceived Time03/15/2025 3:13 PM EDT Narrative 03/15/2025 3:13 PM EDT XR CHEST 2 VWS Chest 2 views History: COPD with acute exacerbation ([facility]) Comparison: March 20, 2024 Impression: * ??No focal consolidation or pleural fluid. Grossly I cannot identify any mediastinal or hilar mass. No acute findings. Finalized by Dmitry Lloyd MD on 03/15/2025 3:13 PM Procedure Note Dmitry Lloyd MD - 03/15/2025 XR CHEST 2 VWS Chest 2 views History: COPD with acute exacerbation ([facility]) Comparison: March 20, 2024 Impression: * No focal consolidation or pleural fluid. Grossly I cannot identify any mediastinal or hilar mass. No acute findings. Finalized by Dmitry Lloyd MD on 03/15/2025 3:13 PM Authorizing ProviderResult TypeResult StatusKelrohan Mcmahon SEX THERAPIST-CNPIMG DIAGNOSTIC IMAGING ORDERABLESFinal Result from Last 3 Months Insurance * Guarantor: Rain Wolfe TypeRelation to PatientDate of BirthPhone Billing AddressPersonal/WgodypKehx1975 [address] [address] Care Teams Team MemberRelationshipSpecialtyStart DateEnd Date Ori Flores MD [address] [place] [address] PCP - GeneralFamily Medicine09/17/24
[2025-04-24] MEDS: CEFAZOLIN SODIUM 1,000 MG, WATER FOR INJECTION,STERILE 2.5 ML IM (11:35)
== END 2025-04-24 11:45 | disposition home or self-care (01) ==
LOC: ER 11:25
PROVIDERS: Emergency Provider Emergency Medicine; PCP Family Medicine
DX: K08.89 Other specified disorders of teeth and supporting structures (principal)
CPT/HCPCS: 96372; 99284; J0690